=== PATIENT | male | born 1950 | race Caucasian/White ===

== ENCOUNTER → 2016-06-20 | Outpatient (CLI) | payer MEDICARE ==
--- NOTE | 2016-06-20 13:44 | REP ---
SKELETAL SURVEY: Skeletal survey is performed with multiple views obtained. AP and lateral views of the skull demonstrate multiple vascular grooves. No fracture is seen. There is no radiographic evidence of suspicious bone lesion. AP and lateral views of the cervical spine demonstrate no compression fracture or malalignment. There is mild diffuse spurring. There is mild disc space narrowing at C3-4. There is narrowing and sclerosis at the posterior facet joints with mild diffuse spurring. There is no definite bone lesion. AP and lateral view of the thoracic spine are performed. There is no compression fracture. There is moderate diffuse spurring. The posterior elements are intact with no definite bone lesion identified. AP and lateral views of the lumbar spine are performed. There is no compression fracture. There is mild anterior listhesis of L5. There is moderate diffuse spurring. There is mild disc space narrowing at L2-3 and L3-4 as well as L5-S1 with subchondral sclerosis. There is mild vacuum phenomenon at L3-4. T There is moderate narrowing with subchondral sclerosis and vacuum at L4-5. There is diffuse sclerosis and spurring at the posterior facet joints. No definite bone lesion is seen. AP view of the pelvis is performed. There is no fracture or dislocation. Tendinous calcifications are seen along the iliac wings bilaterally. I see no radiographic evidence of bone lesion. There are mild degenerative changes of the hips bilaterally with subchondral sclerosis and spurring. AP views of the left femur are performed and demonstrate no fracture. There is mild tendinous calcification along the greater trochanter. Smooth cortical thickening is seen of a mild degree in the mid lateral femoral shaft. This is of doubtful significance and may be due to old trauma. There are no suspicious characteristics at this location and no definite bone lesion is seen. AP views of the right femur demonstrate no fracture or bone lesion. Tendinous calcifications are seen along the greater trochanter. AP view of the right humerus is demonstrates no fracture or bone lesion. There are degenerative changes at the right shoulder, at the glenohumeral and acromioclavicular joints with joint space narrowing, subchondral sclerosis and spurring. AP view of the left humerus also demonstrates no fracture or bone lesion with similar degenerative changes at the left shoulder joint. IMPRESSION: No compelling radiographic evidence of osseous metastases as discussed in detail above. There are multiple areas of arthritic changes as discussed above. Signed by Nikolas Pandey MD 06/20/2016 05:22 P
== END ==
LOC: M RAD 11:54
PROVIDERS: ATTEND Internal Medicine Medical Oncology
DX: R79.9 Abnormal finding of blood chemistry, unspecified (principal)

== ENCOUNTER → 2016-12-05 | Outpatient (REF) | payer MEDICARE ==
[2016-12-05 20:19] LABS: IMMUNOGLOBULIN G 1910 MG/DL (681-1648)
[2016-12-05 21:16] LABS: IMMUNOGLOBULIN M 15.8 MG/DL (40-230)
[2016-12-06 11:06] LABS: ALBUMIN 4.14 GM/DL (3.29-5.55); ALBUMIN % 51.7 % (55.8-66.1); GAMMA GLOBULIN % 22.3 % (11.1-18.8)
[2016-12-07 14:16] LABS: FREE KAPPA LIGHT CHAINS SERUM 17.6 mg/L (3.3-19.4); FREE LAMBDA LIGHT CHAINS SERUM 8.4 mg/L (5.7-26.3); KAPPA/LAMBDA RATIO SERUM 2.1 (0.26-1.65)
== END ==
LOC: M LAB REF 16:37
PROVIDERS: ATTEND Internal Medicine Medical Oncology
DX: D47.2 Monoclonal gammopathy (principal)

== ENCOUNTER → 2017-07-26 | Outpatient (CLI) | payer MEDICARE | LOC: M PLARAD 13:25 | DX: M25.561 Pain in right knee (principal); M79.604 Pain in right leg | CPT/HCPCS: 73721 ==

== ENCOUNTER → 2019-08-15 | Outpatient (CLI) | payer OTHER ==
--- NOTE | 2019-08-15 12:11 | REPVR ---
PROCEDURE INFORMATION: Exam: MR Cervical Spine Without Contrast Exam date and time: 08/15/2019 11:06 AM Age: 69 years old Clinical indication: Neck pain; Patient HX: Pain in neck numbness in bue HX hnp c5-c7, PT states nki or priors; Additional info: H/o mass protruding from c-5 and c6-7 TECHNIQUE: Imaging protocol: Multiplanar magnetic resonance images of the cervical spine without contrast. COMPARISON: No relevant prior studies available. FINDINGS: Vertebrae: Unremarkable. Spinal cord: Normal signal. Flattening of the cervical cord from C5-7. C2-C3: No significant disc disease. C3-C4: There is degenerative disc disease including disc space narrowing and dessication. There is a moderate disc/osteophyte complex that flattens the ventral thecal sac. There is a small central disc protrusion. There is moderate bilateral uncovertebral joint arthropathy. There is moderate bilateral neural foraminal narrowing, left worse than right. C4-C5: There is degenerative disc disease including disc space narrowing and dessication. There is a moderate disc/osteophyte complex, partial toward the left, that flattens the ventral thecal sac and compromises the left neural foramen. There is bilateral uncovertebral joint arthropathy, worse on the left. There is moderate left-sided neuroforaminal narrowing. C5-C6: There is degenerative disc disease including disc space narrowing and dessication. There is a large extruded fragment posterior to the C6 vertebra that effaces the ventral subarachnoid space and flattens the ventral surface of the cervical cord. Clinical history describes a similar appearance on prior imaging studies. Direct comparison to prior studies is recommended. There is moderate bilateral uncovertebral joint arthropathy. There is moderate bilateral neural foraminal narrowing. C6-C7: There is degenerative disc disease including disc space narrowing and dessication. There is a large extruded fragment posterior to the C6 vertebra that effaces the ventral subarachnoid space and flattens the ventral surface of the cervical cord. Clinical history describes a similar appearance on prior imaging studies. Direct comparison to prior studies is recommended. There is moderate bilateral uncovertebral joint arthropathy. There is moderate bilateral neural foraminal narrowing. C7-T1: No significant disc disease. No significant spinal stenosis. IMPRESSION: Advanced multilevel degenerative changes with variable degrees of spinal canal and neuroforaminal narrowing. There is a large extruded disc fragment posterior to the C6 vertebra that effaces the ventral subarachnoid space and flattens the ventral surface of the cervical cord. Clinical history describes a similar appearance on prior imaging studies. Direct comparison to prior exams is recommended. In the absence of prior studies for comparison purposes, neurosurgical consultation would be recommended. Electronically signed by: Sreekanth Julian On 08/15/2019 12:11:29 PM
== END ==
LOC: M RAD 10:05
PROVIDERS: ATTEND Physician Assistant Medical
DX: E11.9 Type 2 diabetes mellitus without complications (principal); I50.40 Unspecified combined systolic (congestive) and diastolic (congestive) heart failure; M62.81 Muscle weakness (generalized); M50.221 Other cervical disc displacement at C4-C5 level; M50.321 Other cervical disc degeneration at C4-C5 level; M50.322 Other cervical disc degeneration at C5-C6 level; M50.323 Other cervical disc degeneration at C6-C7 level; M50.33 Other cervical disc degeneration, cervicothoracic region